=== PATIENT | female | born 2000 | race Caucasian/White ===

== ENCOUNTER 2023-09-06 08:10 | Emergency (ER) | payer BC ==
[2023-09-06] MEDS: Sodium Chloride 0.9% 1,000 ML IV ONE (09:15)
[2023-09-06 09:17] LABS: BASOPHILS ABSOLUTE AUTO 0.02 K/uL (0.00-0.20); BASOPHILS PERCENT AUTO 0.2 % (0.0-1.0); EOSINOPHILS ABSOLUTE AUTO 0.19 K/uL (0.00-0.45); EOSINOPHILS PERCENT AUTO 1.8 % (0.0-6.0); IMMATURE GRAN ABSOLUTE AUTO 0.07 K/uL (0.00-0.05); IMMATURE GRAN PERCENT AUTO 0.7 % (0.0-0.4); LYMPHOCYTES PERCENT AUTO 21.7 % (24.0-44.0); MEAN CORPUSCULAR HEMOGLOBIN 31.9 pg (28.0-32.0); MEAN CORPUSCULAR HGB CONC 35.1 g/dL (32.0-36.0); MEAN CORPUSCULAR VOLUME 90.9 fL (83.0-99.0); MEAN PLATELET VOLUME 10.2 fL (9.4-12.3); MONOCYTES ABSOLUTE AUTO 0.92 K/uL (0.00-0.80); MONOCYTES PERCENT AUTO 8.7 % (0.0-8.0); NEUTROPHILS ABSOLUTE AUTO 7.09 K/uL (1.80-7.70); NEUTROPHILS PERCENT AUTO 66.9 % (41.0-71.0); PLATELET COUNT,PLT 217 K/uL (150-400); RED BLOOD CELL COUNT 4.07 M/uL (4.10-5.30); WHITE BLOOD CELL COUNT,WBC 10.59 K/uL (3.9-11.3)
[2023-09-06] MEDS: Sodium Chloride 0.9% 10 ML Syringe FLUSH PRN (09:17)
[2023-09-06] MEDS: Sodium Chloride 0.9% 2.5 ML Syringe FLUSH PRN (09:18)
[2023-09-06 09:42] LABS: ALANINE AMINOTRANSFERASE,ALT 17 IU/L (14-63); ALBUMIN 2.4 g/dL (3.4-5.0); ALKALINE PHOSPHATASE 98 U/L (46-116); ASPARTATE AMNIOTRANSFERASE,AST 15 IU/L (15-37); BILIRUBIN TOTAL 0.2 mg/dL (0.2-1.0); BLOOD UREA NITROGEN,BUN 8 mg/dL (7.0-18.0); CALCIUM 8.9 mg/dL (8.5-10.1); CARBON DIOXIDE,CO2 22.7 mmol/L (21.0-32.0); CHLORIDE,CL 103 mmol/L (98-107); CREATININE 0.6 mg/dL (0.6-1.0); EST CRCL DRUG DOSING (CG) 120.63 mL/min; GLUCOSE RANDOM 85 mg/dL (74-106); POTASSIUM,K 3.8 mmol/L (3.5-5.1); PROTEIN TOTAL,TP 6.1 g/dL (6.4-8.2); SODIUM,NA 139 mmol/L (136-145)
[2023-09-06 09:45] LABS: A/G RATIO 0.7 (0.9-1.6); ESTIMATED GFR 129 mL/min (>60)
[2023-09-06 09:55] LABS: CORONAVIRUS COVID-19 NAA NEGATIVE (NEGATIVE); INFLUENZA A NAA NEGATIVE (NEGATIVE); INFLUENZA B NAA NEGATIVE (NEGATIVE); RESPIRATORY SYNCYTIAL VIR NAA NEGATIVE (NEGATIVE)
== END 2023-09-06 12:02 | disposition home or self-care (01) ==
LOC: MW.ED 08:10
DX: R07.89 Other chest pain (principal); Z88.0 Allergy status to penicillin
CPT/HCPCS: 0241U; 36415; 80053; 84484; 85025; 87651; 93005; 93970; 96360; 99285; J3490; J7030

== ENCOUNTER 2023-10-15 19:41 | Inpatient (IN) | payer BC ==
[2023-10-15] MEDS ORDERED: ePHEDrine 50 MG/ML SDV IVPUSH PRN ×2 (21:54)
[2023-10-15] MEDS ORDERED: Phenylephrine HCl In 0.9% NaCl 1 MG/10 ML Syringe IVPUSH PRN (21:54)
[2023-10-15] MEDS ORDERED: Terbutaline 1 MG/ML SDV SUBCUT PRN (23:04)
[2023-10-15] MEDS ORDERED: Sodium Chloride 0.9% 2.5 ML Syringe FLUSH PRN (23:04)
[2023-10-15] MEDS ORDERED: Sodium Chloride 0.9% 10 ML Syringe FLUSH PRN (23:04)
[2023-10-15] MEDS ORDERED: Calcium Gluconate 10% 1 GM/10 ML SDV IV PRN (23:04)
[2023-10-15] MEDS ORDERED: Acetaminophen 325 MG Tab PO PRN (23:04)
[2023-10-15] MEDS ORDERED: Sodium Chloride 0.9% 20 ML SDV IV PRN (23:04)
[2023-10-16] MEDS: Lactated Ringers 1,000 ML IV SCH (01:45)
[2023-10-16] MEDS: Misoprostol 25 MCG (1/4 of 100 MCG) Tab VAG PRN ×2 (01:53)
[2023-10-16 04:03] LABS: HEMOGLOBIN 14.7 g/dL (12.0-16.0); MEAN CORPUSCULAR HEMOGLOBIN 32.3 pg (28.0-32.0); MEAN CORPUSCULAR VOLUME 92.3 fL (83.0-99.0); MEAN PLATELET VOLUME 11.3 fL (9.4-12.3); PLATELET COUNT,PLT 221 K/uL (150-400); RED BLOOD CELL COUNT 4.55 M/uL (4.10-5.30)
[2023-10-16 04:25] LABS: A/G RATIO 0.7 (0.9-1.6); ALBUMIN 2.8 g/dL (3.4-5.0); BILIRUBIN TOTAL 0.3 mg/dL (0.2-1.0); CALCIUM 9.4 mg/dL (8.5-10.1); CARBON DIOXIDE,CO2 23.3 mmol/L (21.0-32.0); CREATININE 0.6 mg/dL (0.6-1.0); EST CRCL DRUG DOSING (CG) 120.63 mL/min; POTASSIUM,K 3.4 mmol/L (3.5-5.1); PROTEIN TOTAL,TP 6.9 g/dL (6.4-8.2)
[2023-10-16] MEDS ORDERED: dexmedeTOMIDine HCl 200 MCG/2 ML SDV ONE (10:14)
[2023-10-16] MEDS: Ropivacaine HCl/PF 400 MG in Premix Bag 1 BAG EPIDUR SCH (10:24)
[2023-10-16] MEDS: Oxytocin/0.9 % Sodium Chloride 30 UNIT/500 ML BAG IV SCH (15:57)
[2023-10-16] MEDS ORDERED: Oxytocin 10 Units/1 ML SDV ONE (21:22)
[2023-10-16] MEDS ORDERED: Ondansetron 4 MG/2 ML SDV IVPUSH PRN (21:48)
[2023-10-16] MEDS ORDERED: Ibuprofen 800 MG Tab PO PRN (23:30)
[2023-10-16] MEDS ORDERED: Lanolin 100% Cream 7 GM Tube TOP PRN (23:30)
[2023-10-16] MEDS ORDERED: Measles, Mumps & Rubella Vaccine 0.5 ML SDV SUBCUT ONE (23:30)
[2023-10-16] MEDS ORDERED: Carboprost Tromethamine 250 MCG/1 mL Vial IM PRN (23:30)
[2023-10-16] MEDS ORDERED: Docusate Sodium 100 MG Cap PO PRN (23:30)
[2023-10-16] MEDS ORDERED: Simethicone 80 MG Tab.Chew PO PRN (23:30)
[2023-10-17 00:10] LABS: PH,UMBILICAL ARTERIAL 7.068 (7.18-7.38); PH,UMBILICAL VENOUS 7.14 (7.25-7.45)
[2023-10-17] MEDS: Witch Hazel Medicated Pads 40/Jar TOP PRN (01:41)
[2023-10-17] MEDS: Benzocaine/Menthol 20%-0.5% Spray 78 GM Cannister TOP PRN (01:42)
[2023-10-17] MEDS: Tranexamic Acid IN NACL,ISO-OS 1,000 MG in Premix Bag 1 BAG IV PRN (03:48)
[2023-10-17] MEDS: Methylergonovine 0.2 MG/1 ML Amp IM PRN (04:04)
[2023-10-17] MEDS: fentaNYL 100 MCG/2 ML SDV ONE (04:05)
[2023-10-17] MEDS ORDERED: Loperamide 2 MG Cap PO ONE (04:06)
[2023-10-17] MEDS: Misoprostol 200 MCG Tab RECTAL PRN (04:10)
[2023-10-17] MEDS ORDERED: Ondansetron 4 MG/2 ML SDV IVPUSH PRN (04:14)
[2023-10-17] MEDS: Ondansetron 4 MG/2 ML SDV IVPUSH STA (04:21)
[2023-10-17] MEDS ORDERED: Naloxone 0.4 MG/ML SDV IVPUSH PRN (04:22)
[2023-10-17] MEDS: Morphine 2 MG/ML SYRINGE IVPUSH STA (04:29)
[2023-10-17] MEDS: Acetaminophen 1,000 MG in Premix Bag 1 BAG IV STA (04:30)
[2023-10-17 04:34] LABS: HEMATOCRIT 32.7 % (37.0-47.0); HEMOGLOBIN 11.5 g/dL (12.0-16.0); MEAN CORPUSCULAR HEMOGLOBIN 32.3 pg (28.0-32.0); MEAN CORPUSCULAR HGB CONC 35.2 g/dL (32.0-36.0); MEAN CORPUSCULAR VOLUME 91.9 fL (83.0-99.0); MEAN PLATELET VOLUME 10.5 fL (9.4-12.3); PLATELET COUNT,PLT 205 K/uL (150-400); RED BLOOD CELL COUNT 3.56 M/uL (4.10-5.30); WHITE BLOOD CELL COUNT,WBC 18.38 K/uL (3.9-11.3)
[2023-10-17 04:52] LABS: INR 0.96 (0.86-1.11); PTT,PARTIAL THROMBOPLSTIN TIME 29.6 SEC (23.9-30.7)
[2023-10-17 04:58] LABS: A/G RATIO 0.5 (0.9-1.6); ALBUMIN 1.8 g/dL (3.4-5.0); BILIRUBIN TOTAL 0.5 mg/dL (0.2-1.0); CALCIUM 8.4 mg/dL (8.5-10.1); CARBON DIOXIDE,CO2 20.4 mmol/L (21.0-32.0); CREATININE 0.7 mg/dL (0.6-1.0); EST CRCL DRUG DOSING (CG) 103.4 mL/min; POTASSIUM,K 4.1 mmol/L (3.5-5.1); PROTEIN TOTAL,TP 5.2 g/dL (6.4-8.2)
[2023-10-18] MEDS: Acetaminophen 500 MG Tab PO PRN (07:42)
== END 2023-10-18 11:00 | disposition home or self-care (01) | DRG 560 ==
LOC: MW.OBCHECK 19:41 → MW.OB 19:41 → MW.OBCHECK 19:47 → MW.OB 19:48 → OBSVTOIN 10-16 23:06 → MW.OB 10-17 02:45
PROVIDERS: ADMIT Obstetrics & Gynecology; ATTEND Obstetrics & Gynecology Obstetrics
PROC: 10E0XZZ Delivery of Products of Conception, External Approach (ICD-10-PCS; principal; 2023-10-16)
PROC: 3E0P7VZ Introduction of Hormone into Female Reproductive, Via Natural or Artificial Opening (ICD-10-PCS; 2023-10-16)
PROC: 3E0R3BZ Introduction of Anesthetic Agent into Spinal Canal, Percutaneous Approach (ICD-10-PCS; 2023-10-16)
PROC: 00HU33Z Insertion of Infusion Device into Spinal Canal, Percutaneous Approach (ICD-10-PCS; 2023-10-16)
DX: O13.4 Gestational [pregnancy-induced] hypertension without significant proteinuria, complicating childbirth (principal); O99.214 Obesity complicating childbirth; O72.1 Other immediate postpartum hemorrhage; Z37.0 Single live birth; Z3A.38 38 weeks gestation of pregnancy
CPT/HCPCS: 36415; 51702; 59025; 59409; 80053; 82803; 84550; 85027; 85384; 85460; 85610; 85730; 86592; 86850; 86900; 86901; 86920; A9270-GY; J0131; J2210; J2270; J2405; J2590; J2790; J2795; J3010; J3490; J7120